=== PATIENT | female | born 1985 | race African-American/Black ===

== ENCOUNTER 2018-08-04 07:40 | Emergency (ER) | payer MEDICAID, MEDICARE ==
[~2018-08-04] VITALS: Ht 177.8 cm; Wt 91.0 kg
[2018-08-04] MEDS ORDERED: IBUP-2029 PO (07:56)
[2018-08-04] MEDS ORDERED: SODIUM CHLORIDE 0.9% 1,000 ML IV ONE (08:45)
[2018-08-04 09:06] LABS: BASOPHILS % 0.5 % (0.0-2.0); EOSINOPHILS % 1.4 % (0.0-5.0); HEMATOCRIT. 35.9 % (36.0-48.0); HEMOGLOBIN. 12.1 g/dL (12.0-16.0); MEAN CORPUSCULAR HEMOGLOBIN 25.1 pg (28.0-32.0); MEAN CORPUSCULAR VOLUME 74.2 fL (81.0-99.0); MEAN PLATELET VOLUME 9.4 fl (7.4-10.4); MONOCYTES % 9.7 % (2.0-8.0); NEUTROPHILS % 69.4 % (40.0-76.0); PLATELET 208 x1000/uL (130-400); RED BLOOD CELL COUNT 4.83 mill/uL (4.2-5.4); RED CELL DISTRIBUTION WIDTH 14.7 % (11.6-14.6)
[2018-08-04 09:12] LABS: CHLORIDE 106 mEq/L (98-107)
[2018-08-04 09:23] LABS: B-HCG QUANTITATIVE 65 mIU/mL (<3)
[2018-08-04] MEDS ORDERED: KETOROLAC 30MG/ML VIAL IV ONE (10:00)
[2018-08-04 13:30] VITALS: BP 101/61
== END 2018-08-04 13:32 | disposition home or self-care (01) ==
LOC: ER 07:40
DX: O36.4XX0 Maternal care for intrauterine death, not applicable or unspecified (principal); Z3A.11 11 weeks gestation of pregnancy; Z98.890 Other specified postprocedural states; Z88.5 Allergy status to narcotic agent; Z88.6 Allergy status to analgesic agent; Z79.899 Other long term (current) drug therapy
CPT/HCPCS: 36415; 76830; 76856; 80053; 84702; 85025; 86850; 86900; 86901; 99284; J1885; J7030